=== PATIENT | female | born 1940 | race Caucasian/White ===

== ENCOUNTER 2017-01-20 06:11 | Day surgery (SDC) | payer MEDICARE ==
[2017-01-17 09:47] LABS: BLOOD UREA NITROGEN 22 mg/dL (7-18)
[2017-01-17 09:49] LABS: ASPARTATE AMINO TRANSFERASE 24 U/L (15-37)
[~2017-01-20] VITALS: Ht 166.4 cm; Wt 60.0 kg
[~2017-01-20 06:11] MED LIST: ASCO10004 PO; ASPI-496 PO; ATOR20TA9 PO; BIOT25004 PO; CYAN10005 PO; FLAX1000 PO; FOLI0.8T2 PO; GINK120C PO; GLUC-88 PO; LACT1CAP35 PO; LISI-167 PO; MAGN250T8 PO; MELA1TAB22 PO; MULT-658 PO; OMEG-120 PO; PYRI100T2 PO; SELE200T10 PO; TRIA1CAP3 PO; UBID100C24 PO; VALA500T PO; calcium PO
[2017-01-20] MEDS ORDERED: LIDOCAINE/PF 1%-EPI 1:200K, 30ML ONE (06:42)
[2017-01-20] MEDS ORDERED: CIPROFLOXACIN/HYDROCORTISONE EAR SUSP 0.2-1%, 10ML ONE (06:42)
[2017-01-20] MEDS ORDERED: EPINEPHRINE TOPICAL SOLN 1 MG/ML, 30ML ONE (06:42)
[2017-01-20] MEDS ORDERED: FENTANYL PF 100 MCG/2ML ONE (07:02)
[2017-01-20] MEDS ORDERED: LACTATED RINGERS 1,000 ML IV SCH (07:06)
[2017-01-20 07:07] VITALS: BP 120/74
[2017-01-20] MEDS ORDERED: PHENYLEPHRINE 10 MG/ML ONE (07:34)
[2017-01-20] MEDS ORDERED: PROPOFOL 10 MG/ML, 20ML ONE (07:34)
[2017-01-20] MEDS ORDERED: NEOSTIGMINE 1 MG/ML, 10ML ONE (07:34)
[2017-01-20] MEDS ORDERED: GLYCOPYRROLATE 0.2MG/1ML ONE (07:34)
[2017-01-20] MEDS ORDERED: EPHEDRINE 50 MG/ML, 1ML ONE (07:34)
[2017-01-20] MEDS ORDERED: ROCURONIUM 10 MG/ML ONE (07:34)
[2017-01-20] MEDS ORDERED: CEFAZOLIN 1,000 MG ONE (07:34)
[2017-01-20] MEDS ORDERED: ONDANSETRON 2MG/ML, 2ML ONE (07:34)
[2017-01-20] MEDS ORDERED: DEXAMETHASONE 4 MG/ML, 1ML ONE (07:34)
[2017-01-20] MEDS ORDERED: ALBUTEROL SULFATE 2.5 MG/3 ML NPPB PRN (08:30)
[2017-01-20] MEDS ORDERED: hydrALAzine 20 MG/ML, 1ML IV PRN (08:30)
[2017-01-20] MEDS ORDERED: METOPROLOL 1 MG/ML, 5ML IV PRN (08:30)
[2017-01-20] MEDS ORDERED: OXYcodone 5 MG/5 ML ORAL.SOL UDC PO PRN (08:30)
[2017-01-20] MEDS ORDERED: HYDROmorphone 1 MG/ML, 1ML IV PRN (08:30)
[2017-01-20] MEDS ORDERED: FENTANYL PF 100 MCG/2ML IV PRN (08:30)
[2017-01-20] MEDS ORDERED: OXYcodone 5 MG/5 ML ORAL.SOL UDC ONE (09:08)
== END 2017-01-20 10:40 | disposition home or self-care (01) ==
LOC: OUT 06:11
PROVIDERS: ATTEND Otolaryngology Facial Plastic Surgery
DX: H72.01 Central perforation of tympanic membrane, right ear (principal); I10 Essential (primary) hypertension; H90.11 Conductive hearing loss, unilateral, right ear, with unrestricted hearing on the contralateral side
CPT/HCPCS: 36415; 69631; 71020; 80053; 85025; 93005; J0690; J1100; J2370; J2405; J2704; J2710; J3010; J3490

== ENCOUNTER 2017-01-20 23:08 | Emergency (ER) | payer MEDICARE ==
[~2017-01-20] VITALS: Ht 165.1 cm; Wt 62.4 kg
[2017-01-20 23:10] VITALS: BP 129/65
== END 2017-01-21 01:20 | disposition home or self-care (01) ==
LOC: ED 23:59
DX: H95.89 Other postprocedural complications and disorders of the ear and mastoid process, not elsewhere classified (principal); I10 Essential (primary) hypertension
CPT/HCPCS: 99281